=== PATIENT | male | born 1975 | race Caucasian/White ===

== ENCOUNTER → 2022-03-29 | Outpatient (CLI) | payer OTHER ==
[~2022-03-29] MED LIST: GLUCOPHAGE500 MG PO
== END ==
LOC: HEART 5 15:11
DX: J44.9 Chronic obstructive pulmonary disease, unspecified (principal)
CPT/HCPCS: 94060; 94729

== ENCOUNTER → 2022-05-02 | Outpatient (CLI) | payer OTHER | LOC: ECHO 02-01 12:45 | DX: R06.02 Shortness of breath (principal); J44.1 Chronic obstructive pulmonary disease with (acute) exacerbation; I51.7 Cardiomegaly | CPT/HCPCS: ECHO; 93306 ==